=== PATIENT | female | born 1975 | race Asian ===

== ENCOUNTER 2024-11-28 11:48 | Emergency (ER) | payer MEDICAID ==
[~2024-11-28] VITALS: Ht 157.5 cm; Wt 112.0 kg
[2024-11-28 11:50] VITALS: O2SAT 97
[2024-11-28] MEDS: SODIUM CHLORIDE 0.9% 1,000 ML IV ONE (12:41)
[2024-11-28] MEDS: ACETAMINOPHEN 325MG TABLET PO ONE (12:57)
[2024-11-28] MEDS: FAMOTIDINE 20MG/2ML VIAL IV STA (12:58)
[2024-11-28] MEDS: VISCOUS LIDOCAINE 2% 15 ML UDC MM SCH (12:59)
[2024-11-28] MEDS: MAGNESIUM/ALUMINUM HYDROXIDE/SIMETHICONE 30ML UDC PO STA (12:59)
[2024-11-28] MEDS: KETOROLAC 15MG/ML VIAL IV ONE (13:01)
[2024-11-28 13:02] LABS: CHLORIDE 107 mEq/L (98-107)
[2024-11-28 13:03] LABS: CARBON DIOXIDE 21 mEq/L (21-32); POTASSIUM 3.7 mEq/L (3.5-5.1); SODIUM 138 mEq/L (136-145)
[2024-11-28 13:04] LABS: CALCIUM 9.1 mg/dL (8.7-10.4)
[2024-11-28 13:06] LABS: BASOPHILS % 0.4 % (0.0-2.0); EOSINOPHILS % 2.7 % (0.0-5.0); HEMATOCRIT. 40.1 % (36.0-48.0); LYMPHOCYTES % 41.7 % (20.0-50.0); MEAN CORPUSCULAR HEMOGLOBIN 27.8 pg (28.0-32.0); MEAN CORPUSCULAR HGB CONC 32.4 g/dL (31.0-37.0); MEAN PLATELET VOLUME 7.5 fl (7.4-10.4); MONOCYTES % 5.5 % (2.0-8.0); NEUTROPHILS % 49.7 % (40.0-76.0); PLATELET 355 x1000/uL (130-400); RED BLOOD CELL COUNT 4.66 mill/uL (4.2-5.4); RED CELL DISTRIBUTION WIDTH 16.8 % (11.6-14.6); WHITE BLOOD COUNT 13.9 x1000/uL (4.5-11.0)
[2024-11-28 13:08] LABS: CREATININE 0.6 mg/dL (0.6-1.0); GLUCOSE 181 mg/dL (70-105)
[2024-11-28 13:09] LABS: TROPONIN I HIGH SENSITIVITY 6 ng/L (3.0-34); UREA NITROGEN BLOOD 12 mg/dL (9-23)
[2024-11-28 13:10] LABS: ALANINE AMINOTRANSFERASE 56 IU/L (10-49); ALBUMIN 4.2 g/dL (3.2-4.8); ASPARTATE AMINOTRANSFERASE 48 IU/L (<34)
[2024-11-28 13:11] LABS: BILIRUBIN DIRECT 0.1 mg/dL (<=3.0); BILIRUBIN TOTAL 0.4 mg/dL (0.1-1.0); PROTEIN TOTAL 6.9 g/dL (6.0-8.3)
[2024-11-28 13:12] LABS: HCG SCREEN NEGATIVE
[2024-11-28 16:36] LABS: TROPONIN I HIGH SENSITIVITY 5 ng/L (3.0-34)
[2024-11-28 17:30] VITALS: BP 126/76; PULSE 70; RESP 19; TEMP 36.6; O2SAT 99
== END 2024-11-28 17:55 | disposition home or self-care (01) ==
LOC: ER 12:32 → CANBEDREQ 16:24 → ER 17:55
DX: R07.89 Other chest pain (principal); E11.9 Type 2 diabetes mellitus without complications; I10 Essential (primary) hypertension; Z86.73 Personal history of transient ischemic attack (TIA), and cerebral infarction without residual deficits; Z98.890 Other specified postprocedural states; Z79.899 Other long term (current) drug therapy
CPT/HCPCS: 80076; 80048; 82962; 84703; 83880; 83690; 85025; 84484; 36415; 71045; 93005; 96361; 96374; 96375; 99291; J1308; J1885; J7030; Z7610